=== PATIENT | male | born 1980 | race Caucasian/White ===

== ENCOUNTER 2018-06-20 18:20 | Emergency (ER) | payer BC, OTHER ==
[2018-06-20 18:50] VITALS: BP 143/95
--- NOTE | 2018-06-20 20:02 | UC ---
Eye Complaint HPI - HPI Summary HPI Summary: 37 y/o male presents to the urgent care c/o left eye is sore and hurts to blink w/ a dry itchy feeling at times for the past week. He states he wears contact lenses and since he removed the one in the left eye, he probably scratched his cornea. He denies eye pain, but it feels irritation. His eye has been mildly tearing, w/ also mild photosensitivity. At times he has developed LANIER which resolved by taking Ibuprofen PO. He is not longer wearing his contacts, only his glsses. Pt deneis fever, purulent discharge, dizziness, visual changes, SOB , chest pain, abdominal pain, N/V/D. - History of Current Complaint Chief Complaint: UCEye Stated Complaint: EYE COMPLAINT Time Seen by Provider: 06/20/18 20:01 Hx Obtained From: Patient Onset/Duration: Gradual Onset, Lasting Weeks - 1 week, Still Present Timing: Constant Severity Initially: Mild Severity Currently: Mild Pain Intensity: 3 - eye irritation Pain Scale Used: 0-10 Numeric Location of Injury: Conjunctiva - left Character: Foreign Body Sensation Aggravating Factor(s): Blinking Alleviating Factor(s): Nothing Associated Signs And Symptoms: Positive: Drainage (Clear). Negative: Vision Impairment Bilateral, Fever, Swelling - Risk Factors Penetrating Injury Risk Factor: Negative Globe Rupture Risk Factors: Negative Acute Glaucoma Risk Factors: Negative Optic Artery Occlusion Risk Factors: Negative - Allergies/Home Medications Allergies/Adverse Reactions: Allergies Allergy/AdvReac Type Severity Reaction Status Date / Time cats and dogs Allergy Sneezing Uncoded 06/20/18 18:50 PMH/Surg Hx/FS Hx/Imm Hx Previously Healthy: Yes Endocrine History: Dyslipidemia - diet controlled - Surgical History Surgical History: None - Family History Known Family History: Positive: Cardiac Disease, Diabetes - Social History Occupation: Employed Full-time Lives: With Family Alcohol Use: Weekly Substance Use Type: None Smoking Status (MU): Never Smoked Tobacco - Immunization History Most Recent Influenza Vaccination: 2012 Review of Systems All Other Systems Reviewed And Are Negative: Yes Constitutional: Positive: Negative Skin: Positive: Negative Eyes: Positive: Drainage - clear, Eye Redness - left eye midly red, Other - photosensitivity ENT: Positive: Negative Respiratory: Positive: Negative Cardiovascular: Positive: Negative Gastrointestinal: Positive: Negative Genitourinary: Positive: Negative Motor: Positive: Negative Neurovascular: Positive: Negative Musculoskeletal: Positive: Negative Neurological: Positive: Headache Psychological: Positive: Negative Is Patient Immunocompromised?: No Physical Exam - Summary Physical Exam Summary: Vital Signs Reviewed: Yes General: Well appearing, well nourished male in no apparent pain distress Eyes: Positive: Conjunctiva Inflamed - Visual acuity: WNL,Visual ricci: full to confrontation. PERRLA, EOMI intact w/out limitation or complaint of pain. eyelashes clear. mild tearing and yellowish drainage observed. No ciliary flush. No chemosis, No photophobia. Normal fundoscopic exam; no proptosis, exophthalmos, nystagmus. No FB observed w/ naked eye. ENT: Positive: Normal ENT inspection, Hearing grossly normal, Pharynx normal, Nasal congestion, Nasal drainage - clear, TMs normal - B/L external ear canal clear , TM's WNL. Negative: Tonsillar swelling, Tonsillar exudate Neck: Positive: Supple, Nontender, No Lymphadenopathy Respiratory: Positive: Chest nontender, Lungs clear, Normal breath sounds, No respiratory distress Cardiovascular: Positive: RRR, No Murmur, Pulses Normal, Brisk Capillary Refill Abdomen Description: Positive: Nontender, No Organomegaly, Soft. Negative: CVA Tenderness (R), CVA Tenderness (L) Bowel Sounds: Positive: Present Musculoskeletal: Positive: Strength Intact, ROM Intact, No Edema Neurological Exam: Normal Psychological Exam: Normal Skin Exam: Normal Triage Information Reviewed: Yes Vital Signs: Initial Vital Signs Temp 98.7 F 06/20/18 18:46 Pulse 80 06/20/18 18:46 Resp 16 06/20/18 18:46 BP 143/95 06/20/18 18:46 Pulse Ox 99 06/20/18 18:46 Eye Complaint Course/Dx - Course Course Of Treatment: 37 y/o male presents to the urgent care c/o left eye is sore and hurts to blink w/ a dry itchy feeling at times for the past week. He states he wears contact lenses and since he removed the one in the left eye, he probably scratched his cornea. He denies eye pain, but it feels irritation. His eye has been mildly tearing, w/ also mild photosensitivity. At times he has developed LANIER which resolved by taking Ibuprofen PO. He is not longer wearing his contacts, only his glsses. Pt deneis fever, purulent discharge, dizziness, visual changes, SOB , chest pain, abdominal pain, N/V/D. Hx obtained. Pt w/ RT eye with conjunctiva clear, sclera is white. LF eye with inflamed conjunctiva and clear eye discharge. B/L PERRLA, EOMI w/o any nystagmus or strabismus. Fundi appears benign. Disks are well delineated. There are no hemorrhages or exudates. and visual ricci are within normal limits. No foreign body under eyelids observed with naked eye on examination.2 drops of Tetracaine optha drops placed on Pts left eye, then irrigated with saline drops to flush any foreign particles, then fluorescein instillation and examination with a UV lamp. Positive discrete point corneal abrasion observed at 6 oclock. No foreign body identified. After procedure Pt felt better. Pt Rx Erythromycin ophthalmic ointment and advised to f/u at [facility] [place]. Pt's BP is elevated today advised to decrease salt in diet, monitor BP and f/u with PCP for further management.D/C instructions explained. Pt understood and agreed. - Differential Dx/Diagnosis Differential Diagnosis/HQI/PQRI: Conjunctivitis, Corneal Abrasion, Periorbital Cellulitis, Orbital Cellulitis, Uveitis Provider Diagnosis: Corneal abrasion, left, Elevated BP without diagnosis of hypertension Discharge - Sign-Out/Discharge Documenting (check all that apply): Patient Departure All imaging exams completed and their final reports reviewed: No Studies - Discharge Plan Condition: Stable Disposition: HOME Prescriptions: Erythromycin OPTH OINT* [Erythromycin 0.5% OPTH OINT*] 1 applic LEFT EYE TID #1 ophth.oint Patient Education Materials: Corneal Abrasion (ED) Referrals: Maulik Jean MD [Primary Care Provider] - 2 Days Quang Ríos MD [Medical Doctor] - 1 Day Additional Instructions: 1-Please apply Erythormycin ophthalmic oint drops as instructed and finish the full course of treatment to prevent infection. 2-please f/u with [facility] Dr Hagen for further evaluation and treatment on your Corneal abrasion 3- Your BP is elevated today. please decrease salt in your diet, monitor BP and if it continues to be elevated please f/u with your PCP for further management. - Billing Disposition and Condition Condition: STABLE Disposition: Home
[2018-06-20] MEDS ORDERED: Tetracaine 0.5% OPTH.SOL 4 ML* 1 DROP BTL LEFT EYE ONE (20:16)
[2018-06-20] MEDS ORDERED: Fluorescein Sodium TOPICAL* 1 MG TEST STRIP OPHTHALMIC ONE (20:16)
[2018-06-20] MEDS ORDERED: Eye Irrigation Solution 30 ML BOTTLE LEFT EYE ONE (20:16)
[2018-06-20] MEDS ORDERED: Tetan/Diph/Pertus SYR(Tdap)* 0.5 ML SYR(BOOSTRIX) use SYR IM ONE (20:49)
[2018-06-20] MEDS ORDERED: Erythromycin OPTH OINT* APPLIC OINT LEFT EYE ONE (20:49)
== END 2018-06-20 21:40 | disposition home or self-care (01) ==
LOC: UCEAST 18:20
DX: H18.822 Corneal disorder due to contact lens, left eye (principal); R03.0 Elevated blood-pressure reading, without diagnosis of hypertension; Z23 Encounter for immunization
CPT/HCPCS: 90471; 90715; 99212; A9270-GY; G0463